=== PATIENT | female | born 1980 ===

== ENCOUNTER 2021-06-13 11:50 | Inpatient (IN) | payer SELFPAY ==
[2021-06-13] MEDS ORDERED: ACETAMINOPHEN 325 MG TAB PO ONE (12:21)
[2021-06-13] MEDS ORDERED: IBUPROFEN 600 MG TAB PO ONE (12:21)
--- NOTE | 2021-06-13 12:24 | Event Note ---
ED Screening Note Date of service: 06/13/21 Time: 12:20 ED Screening Note: Patient Lithuanian-speaking. 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 Patient complains of generalized body aches, cough, shortness of breath, chest pain, and subjective fevers as well as other URI symptoms for about 1 week. She states that she has been around other family members have been sick but she is not exactly sure what they had. She denies any known COVID-19 contacts. She did not get a Covid test and she has been sick. She also has not gotten a COVID-19 vaccine. Other than history of hypertension she denies any other significant past medical history. This initial assessment/diagnostic orders/clinical plan/treatment(s) is/are subj ect to change based on patients health status, clinical progression and re- assessment by fellow clinical providers in the ED. Further treatment and workup at subsequent clinical providers discretion. Patient/guardian urged not to elope from the ED as their condition may be serious if not clinically assessed and managed. Initial orders include: labs/cxr
--- NOTE | 2021-06-13 13:10 | XRay Report ---
CHEST 2 VIEWS INDICATION / CLINICAL INFORMATION: cough/sob. COMPARISON: None available. FINDINGS: SUPPORT DEVICES: None. HEART / MEDIASTINUM: No significant abnormality. LUNGS / PLEURA: There are moderate patchy bilateral opacities. ADDITIONAL FINDINGS: No significant additional findings. IMPRESSION: 1. Moderate patchy bilateral pulmonary opacities likely indicating viral pneumonia. Signer Name: Ronal Lester MD Signed: 06/13/2021 1:06 PM Workstation Name: [id number]
[2021-06-13 14:13] LABS: Basophils # (Auto) 0.1 K/mm3 (0.0-0.1); Basophils % (Auto) 1.6 % (0.0-1.8); Eosinophils % (Auto) 0.1 % (0.0-4.3); Hematocrit 39.5 % (30.3-42.9); Hemoglobin 13.6 gm/dl (10.1-14.3); Lymphocytes # (Auto) 0.5 K/mm3 (1.2-5.4); Lymphocytes % (Auto) 13.1 % (13.4-35.0); Mean Corpuscular HGB Conc 35 % (30-34); Mean Corpuscular Volume 90 fl (79-97); Monocytes # (Auto) 0.3 K/mm3 (0.0-0.8); Monocytes % (Auto) 7.5 % (0.0-7.3); Platelet Count 116 K/mm3 (140-440); Red Cell Distribution Width 13.6 % (13.2-15.2)
[2021-06-13 14:37] LABS: Alanine Aminotransferase 27 units/L (7-56); Albumin 3.5 g/dL (3.9-5); Blood Urea Nitrogen 9 mg/dL (7-17); Hemolysis Index 5
[2021-06-13 14:39] LABS: BUN/Creatinine Ratio 13
[2021-06-13 16:08] LABS: C-Reactive Protein 5.2 mg/dL (0.00-1.30)
--- NOTE | 2021-06-14 04:42 | Emergency Department Report ---
ED Shortness of Breath HPI - General Chief Complaint: Weakness Stated Complaint: CHAEST PAIN/BACK PAIN Time Seen by Provider: 06/14/21 04:26 Source: patient Mode of arrival: Ambulatory Limitations: Language Barrier - History of Present Illness Initial Comments: Patient is a 41-year-old female that presents emergency room with complaints of chest pain, shortness of breath, cough, fever. Patient states her symptoms started 9 days ago. Patient dates her symptoms are worsening. Patient states she is taking Tylenol for the fever. Patient states the chest pain is better with rest and worse with palpation and movement. Patient states that shortness of br eath better with rest and worse with exertion. Patient states she has not been vaccinated against COVID-19. Patient states she has not been tested for COVID- 19. Patient complains of cough. Patient states her cough is dry. Patient denies diarrhea. Patient denies loss of smell. MD Complaint: shortness of breath, cough, chest pain -: Sudden - Related Data Allergies Allergy/AdvReac Type Severity Reaction Status Date / Time No Known Allergies Allergy Unverified 06/13/21 12:19 ED Review of Systems ROS: Stated complaint: CHAEST PAIN/BACK PAIN Other details as noted in HPI Constitutional: chills, fever, malaise Eyes: denies: eye pain, eye discharge, vision change ENT: denies: ear pain, throat pain Respiratory: see HPI, cough, shortness of breath. denies: wheezing Cardiovascular: as per HPI, chest pain. denies: palpitations Endocrine: no symptoms reported Gastrointestinal: denies: abdominal pain, nausea, diarrhea Genitourinary: denies: urgency, dysuria, discharge Musculoskeletal: denies: back pain, joint swelling, arthralgia Skin: denies: rash, lesions Neurological: denies: headache, weakness, paresthesias Psychiatric: denies: anxiety, depression Hematological/Lymphatic: denies: easy bleeding, easy bruising ED Past Medical Hx - Past Medical History Previous Medical History?: No - Surgical History Past Surgical History?: No - Family History Family history: no significant - Social History Smoking Status: Never Smoker Substance Use Type: None ED Physical Exam - General Limitations: Language Barrier General appearance: alert, in distress - Head Head exam: Present: atraumatic, normocephalic - Eye Eye exam: Present: normal appearance - ENT ENT exam: Present: mucous membranes moist - Neck Neck exam: Present: normal inspection - Respiratory Respiratory exam: Present: respiratory distress, chest wall tenderness, decreased breath sounds - Cardiovascular Cardiovascular Exam: Present: regular rate, normal rhythm, normal heart sounds. Absent: systolic murmur, diastolic murmur, rubs, gallop - GI/Abdominal GI/Abdominal exam: Present: soft, normal bowel sounds - Extremities Exam Extremities exam: Present: normal inspection - Back Exam Back exam: Present: normal inspection - Neurological Exam Neurological exam: Present: alert, oriented X3 - Psychiatric Psychiatric exam: Present: normal affect, normal mood - Skin Skin exam: Present: warm, dry, intact, normal color. Absent: rash ED Course Vital Signs 06/13/21 06/13/21 06/13/21 12:06 13:29 19:06 Temperature 100.5 F H 98.2 F Pulse Rate 102 H 80 Respiratory 20 22 22 Rate Blood Pressure 105/68 Blood Pressure 116/73 [Right] O2 Sat by Pulse 86 95 Oximetry 06/14/21 06/14/21 06/14/21 00:45 04:41 05:27 Temperature 99.2 F 101.1 F H Pulse Rate 93 H 98 H Respiratory 16 22 22 Rate Blood Pressure 145/81 Blood Pressure 127/77 [Right] O2 Sat by Pulse 88 87 Oximetry 06/14/21 05:28 Temperature Pulse Rate Respiratory 20 Rate Blood Pressure Blood Pressure [Right] O2 Sat by Pulse 89 Oximetry - Reevaluation(s) Reevaluation #1: Patient was on 4 L of oxygen while in the waiting room however the patient is now requiring more. Patient will be placed on high flow O2. I discussed all results with patient. I discussed plan of care with patient. Patient agrees with plan of care and admission. Patient to be admitted to the hospitalist service. 06/14/21 04:47 Reevaluation #2: Patient on high flow and the patient's oxygen has improved. 06/14/21 05:31 - Consultations Consultation #1: Hospitalist consulted for admission. Hospitalist to admit patient. 06/14/21 04:47 ED Medical Decision Making - Lab Data Result diagrams: 06/13/21 13:45 06/13/21 15:35 - Radiology Data Radiology results: report reviewed, image reviewed interpreted by me: Chest x-ray: Bilateral pneumonia, no pneumothorax, no foreign body, no osseous findings, CHEST 2 VIEWS INDICATION / CLINICAL INFORMATION: cough/sob. COMPARISON: None available. FINDINGS: SUPPORT DEVICES: None. HEART / MEDIASTINUM: No significant abnormality. LUNGS / PLEURA: There are moderate patchy bilateral opacities. ADDITIONAL FINDINGS: No significant additional findings. IMPRESSION: 1. Moderate patchy bilateral pulmonary opacities likely indicating viral pneumonia. - Medical Decision Making Patient is a 41-year-old female presents emergency room with complaints of chest pain, shortness of breath, cough, fever, Covid-like symptoms. Patient is PUI. Patient is not been vaccinated for COVID-19. On chest x-ray, the patient found to have bilateral pneumonia of appears to be a viral origin. I personally reviewed the chest x-ray. Patient was given Rocephin, Zithromax and Decadron after initial evaluation. Patient has required oxygen support since been in the ER. Patient is 88% on room air and the patient improved with oxygen via nasal cannula. Patient has respiratory failure with hypoxia. Patient had labs done which were essentially unremarkable save for elevated Covid markers. Patient a dmitted to the hospital service for further evaluation and treatment. Critical care time documented due to the multiple reassessments, prolonged time at the bedside, interpretation of diagnostics and labs. - Differential Diagnosis Fever, Covid, PUI, pneumonia, hypoxia, chest pain, shortness of breath Critical Care Time: Yes Critical care time in (mins) excluding proc time.: 35 Critical care attestation.: If time is entered above; I have spent that time in minutes in the direct care of this critically ill patient, excluding procedure time. Critical Care Time: 35 minutes ED Disposition Clinical Impression: SOB (shortness of breath), Person under investigation for COVID-19, Cough Fever Qualifiers: Fever type: unspecified Qualified Code(s): R50.9 - Fever, unspecified Respiratory failure Qualifiers: Chronicity: acute Respiratory failure complication: hypoxia Qualified Code(s): J96.01 - Acute respiratory failure with hypoxia Disposition: 09 ADMITTED INPATIENT Is pt being admited?: Yes Does the pt Need Aspirin: No Condition: Critical Time of Disposition: 04:49
[2021-06-14] MEDS ORDERED: cefTRIAXone/NS 2 GM/100 ML 2 GM/100 ML BAG IV ONE (04:43)
[2021-06-14] MEDS ORDERED: dexAMETHasone 4 MG/ML VIAL IV ONE (04:43)
[2021-06-14] MEDS ORDERED: AZITHROMYCIN/NS 500 MG/250 ML 500 MG/250 ML BAG IV ONE (04:43)
[2021-06-14] MEDS ORDERED: ACETAMINOPHEN 500 MG TAB PO ONE (04:47)
--- NOTE | 2021-06-14 09:11 | History and Physical Report ---
History of Present Illness Date of examination: 06/14/21 Date of admission: 06/14/21 04:50 Chief complaint: sob History of present illness: 41-year-old female with no significant past medical history presented through the emergency department with complaints of shortness of breath, cough and fever. Patient reported that symptoms began approximately 9 days ago and have progressively worsened. Patient reports dyspnea at rest and exacerbated with exertion. Patient states she has not been vaccinated against COVID-19. Patient states she has not been tested for COVID-19. Past History Past Medical History: No medical history Past Surgical History: No surgical history Social history: no significant social history Family history: no significant family history Medications and Allergies Allergies Allergy/AdvReac Type Severity Reaction Status Date / Time No Known Allergies Allergy Unverified 06/13/21 12:19 Review of Systems All systems: negative Exam - Constitutional Vitals: Temp Pulse Resp BP Pulse Ox 98.9 F 82 23 100/60 95 06/14/21 07:30 06/14/21 08:16 06/14/21 08:16 06/14/21 08:16 06/14/21 08:16 General appearance: Present: no acute distress, well-nourished - EENT Eyes: Present: PERRL ENT: hearing intact, clear oral mucosa - Neck Neck: Present: supple, normal ROM - Respiratory Respiratory effort: normal Respiratory: bilateral: diminished, rhonchi - Cardiovascular Heart Sounds: Present: S1 & S2. Absent: rub, click - Extremities Extremities: pulses symmetrical, No edema Peripheral Pulses: within normal limits - Abdominal General gastrointestinal: Present: soft, non-tender, non-distended, normal bowel sounds Female genitourinary: Present: normal - Integumentary Integumentary: Present: clear, warm, dry - Musculoskeletal Musculoskeletal: gait normal, strength equal bilaterally - Psychiatric Psychiatric: appropriate mood/affect, intact judgment & insight - Neurologic Neurologic: CNII-XII intact, moves all extremities Results - Labs CBC & Chem 7: 06/13/21 13:45 06/13/21 15:35 Labs: Laboratory Last Values WBC 3.7 K/mm3 (4.5-11.0) L 06/13/21 13:45 RBC 4.40 M/mm3 (3.65-5.03) 06/13/21 13:45 Hgb 13.6 gm/dl (10.1-14.3) 06/13/21 13:45 Hct 39.5 % (30.3-42.9) 06/13/21 13:45 MCV 90 fl (79-97) 06/13/21 13:45 MCH 31 pg (28-32) 06/13/21 13:45 MCHC 35 % (30-34) H 06/13/21 13:45 RDW 13.6 % (13.2-15.2) 06/13/21 13:45 Plt Count 116 K/mm3 (140-440) L 06/13/21 13:45 Lymph % (Auto) 13.1 % (13.4-35.0) L 06/13/21 13:45 [place] % (Auto) 7.5 % (0.0-7.3) H 06/13/21 13:45 Eos % (Auto) 0.1 % (0.0-4.3) 06/13/21 13:45 Baso % (Auto) 1.6 % (0.0-1.8) 06/13/21 13:45 Lymph # (Auto) 0.5 K/mm3 (1.2-5.4) L 06/13/21 13:45 [place] # (Auto) 0.3 K/mm3 (0.0-0.8) 06/13/21 13:45 Eos # (Auto) 0.0 K/mm3 (0.0-0.4) 06/13/21 13:45 Baso # (Auto) 0.1 K/mm3 (0.0-0.1) 06/13/21 13:45 Seg Neutrophils % 77.7 % (40.0-70.0) H 06/13/21 13:45 Seg Neutrophils # 2.9 K/mm3 (1.8-7.7) 06/13/21 13:45 D-Dimer 637.63 ng/mlDDU (0-234) H 06/13/21 15:35 Sodium 132 mmol/L (137-145) L 06/13/21 13:45 Potassium 3.6 mmol/L (3.6-5.0) 06/13/21 13:45 Chloride 98.9 mmol/L (98-107) 06/13/21 13:45 Carbon Dioxide 20 mmol/L (22-30) L 06/13/21 13:45 Anion Gap 17 mmol/L 06/13/21 13:45 BUN 9 mg/dL (7-17) 06/13/21 13:45 Creatinine 0.7 mg/dL (0.6-1.2) 06/13/21 13:45 Estimated GFR > 60 ml/min 06/13/21 13:45 BUN/Creatinine Ratio 13 % 06/13/21 13:45 Glucose 113 mg/dL (65-100) H 06/13/21 15:35 Calcium 8.0 mg/dL (8.4-10.2) L 06/13/21 13:45 Ferritin 625.5 ng/mL (10.0-200.0) H 06/13/21 15:35 Total Bilirubin 0.40 mg/dL (0.1-1.2) 06/13/21 13:45 AST 39 units/L (5-40) 06/13/21 13:45 ALT 27 units/L (7-56) 06/13/21 13:45 Alkaline Phosphatase 57 units/L (35-129) 06/13/21 13:45 Lactate Dehydrogenase 467 units/L (91-180) H 06/13/21 15:35 C-Reactive Protein 5.20 mg/dL (0.00-1.30) H 06/13/21 15:35 Total Protein 7.1 g/dL (6.3-8.2) 06/13/21 13:45 Albumin 3.5 g/dL (3.9-5) L 06/13/21 13:45 Albumin/Globulin Ratio 1.0 % 06/13/21 13:45 Microbiology: Microbiology 06/13/21 15:35 Peripheral/Venous Blood Culture - Preliminary Culture in Progress 06/13/21 15:35 Peripheral/Venous Blood Culture - Preliminary Culture in Progress Assessment and Plan Assessment and plan: Acute hypoxic respiratory failure. Suspected COVID-19 pneumonia. Bilateral pneumonia Sepsis. Patient meets criteria given the fever, tachycardia, leukopenia and diagnosis of pneumonia. 06/14/2021. The patient will be admitted to medical floor and started on empiric IV antibiotics. Chest x-ray reveals moderate patchy bilateral pulmonary opacities likely indicating viral pneumonia. Follow-up Covid PCR testing. The patient does have elevated inflammatory markers of D-dimer at 637, ferritin 625, LDH 467 and CRP of 5.2. Check procalcitonin levels. Consider ID and pulmonary consultations.
[2021-06-14] MEDS ORDERED: ONDANSETRON 4 MG/2 ML INJ IV PRN (09:13)
[2021-06-14] MEDS ORDERED: MORPHINE 4 MG/1 ML INJ IV PRN (09:13)
[2021-06-14] MEDS ORDERED: HYDROcodone/ACETAMINOPHEN 5-325 MG TAB PO PRN (09:13)
[2021-06-14] MEDS ORDERED: ACETAMINOPHEN 325 MG TAB PO PRN (09:13)
[2021-06-14] MEDS: cefTRIAXone/NS 2 GM/100 ML 2 GM/100 ML BAG IV SCH (10:39)
[2021-06-14] MEDS: ENOXAPARIN 40 MG/0.4 ML INJ SUB-Q SCH (10:41)
[2021-06-14 10:56] LABS: C-Reactive Protein 6.8 mg/dL (0.00-1.30)
[2021-06-14] MEDS: MORPHINE 2 MG/1 ML INJ IV PRN ×2 (12:16→23:13)
[2021-06-14] MEDS: AZITHROMYCIN/NS 500 MG/250 ML 500 MG/250 ML BAG IV SCH (12:16)
[2021-06-15 06:08] LABS: Basophils % (Auto) 0.2 % (0.0-1.8); Hemoglobin 13.2 gm/dl (10.1-14.3); Lymphocytes # (Auto) 0.6 K/mm3 (1.2-5.4); Mean Corpuscular HGB Conc 34 % (30-34); Mean Corpuscular Volume 92 fl (79-97); Monocytes # (Auto) 0.4 K/mm3 (0.0-0.8); Monocytes % (Auto) 5.9 % (0.0-7.3); Platelet Count 142 K/mm3 (140-440); Red Blood Count 4.23 M/mm3 (3.65-5.03); Red Cell Distribution Width 13.4 % (13.2-15.2)
[2021-06-15 07:39] LABS: Blood Urea Nitrogen 11 mg/dL (7-17); Calcium 8.4 mg/dL (8.4-10.2); Hemolysis Index 3
[2021-06-15 07:44] LABS: BUN/Creatinine Ratio 22
--- NOTE | 2021-06-15 08:17 | Progress Note ---
Assessment and Plan Assessment and plan: Acute hypoxic respiratory failure. Suspected COVID-19 pneumonia. Bilateral pneumonia Sepsis. Patient meets criteria given the fever, tachycardia, leukopenia and diagnosis of pneumonia. 06/14/2021. The patient will be admitted to medical floor and started on empiric IV antibiotics. Chest x-ray reveals moderate patchy bilateral pulmonary opacities likely indicating viral pneumonia. Follow-up Covid PCR testing. The patient does have elevated inflammatory markers of D-dimer at 637, ferritin 625, LDH 467 and CRP of 5.2. Check procalcitonin levels. Consider ID and pulmonary consultations. 06/15/2021. Covid PCR testing positive on 06/13. Continue dexamethasone IV for total of 10 days. Continue to trend inflammatory markers. Continue empiric IV antibiotics for now. ID consultation pending. Prone positioning as possible History Interval history: No new issues overnight. Hospitalist Physical - Constitutional Vitals: Temp Pulse Resp BP Pulse Ox 97.9 F 63 23 109/66 95 06/14/21 23:13 06/15/21 06:00 06/15/21 06:00 06/15/21 06:00 06/15/21 06:00 General appearance: Present: no acute distress, well-nourished - EENT Eyes: Present: PERRL, EOM intact ENT: hearing intact, clear oral mucosa, dentition normal - Neck Neck: Present: supple, normal ROM - Respiratory Respiratory effort: normal Respiratory: bilateral: CTA - Cardiovascular Rhythm: regular Heart Sounds: Present: S1 & S2. Absent: gallop, rub - Extremities Extremities: no ischemia, No edema, Full ROM - Abdominal General gastrointestinal: soft, non-tender, non-distended, normal bowel sounds - Integumentary Integumentary: Present: clear, warm, dry - Neurologic Neurologic: CNII-XII intact, moves all extremities Results - Labs CBC & Chem 7: 06/15/21 05:44 06/15/21 05:44 Labs: Laboratory Last Values WBC 6.9 K/mm3 (4.5-11.0) 06/15/21 05:44 RBC 4.23 M/mm3 (3.65-5.03) 06/15/21 05:44 Hgb 13.2 gm/dl (10.1-14.3) 06/15/21 05:44 Hct 39.0 % (30.3-42.9) 06/15/21 05:44 MCV 92 fl (79-97) 06/15/21 05:44 MCH 31 pg (28-32) 06/15/21 05:44 MCHC 34 % (30-34) 06/15/21 05:44 RDW 13.4 % (13.2-15.2) 06/15/21 05:44 Plt Count 142 K/mm3 (140-440) 06/15/21 05:44 Lymph % (Auto) 9.0 % (13.4-35.0) L 06/15/21 05:44 [place] % (Auto) 5.9 % (0.0-7.3) 06/15/21 05:44 Eos % (Auto) 0.0 % (0.0-4.3) 06/15/21 05:44 Baso % (Auto) 0.2 % (0.0-1.8) 06/15/21 05:44 Lymph # (Auto) 0.6 K/mm3 (1.2-5.4) L 06/15/21 05:44 [place] # (Auto) 0.4 K/mm3 (0.0-0.8) 06/15/21 05:44 Eos # (Auto) 0.0 K/mm3 (0.0-0.4) 06/15/21 05:44 Baso # (Auto) 0.0 K/mm3 (0.0-0.1) 06/15/21 05:44 Seg Neutrophils % 84.9 % (40.0-70.0) H 06/15/21 05:44 Seg Neutrophils # 5.8 K/mm3 (1.8-7.7) 06/15/21 05:44 D-Dimer 605.31 ng/mlDDU (0-234) H 06/14/21 10:06 Sodium 141 mmol/L (137-145) D 06/15/21 05:44 Potassium 3.9 mmol/L (3.6-5.0) 06/15/21 05:44 Chloride 102.9 mmol/L (98-107) 06/15/21 05:44 Carbon Dioxide 28 mmol/L (22-30) D 06/15/21 05:44 Anion Gap 14 mmol/L 06/15/21 05:44 BUN 11 mg/dL (7-17) 06/15/21 05:44 Creatinine 0.5 mg/dL (0.6-1.2) L 06/15/21 05:44 Estimated GFR > 60 ml/min 06/15/21 05:44 BUN/Creatinine Ratio 22 % 06/15/21 05:44 Glucose 126 mg/dL (65-100) H 06/15/21 05:44 POC Glucose 137 mg/dL (70-105) H 06/14/21 20:34 Calcium 8.4 mg/dL (8.4-10.2) 06/15/21 05:44 Ferritin 630.6 ng/mL (10.0-200.0) H 06/14/21 10:06 Total Bilirubin 0.40 mg/dL (0.1-1.2) 06/13/21 13:45 AST 39 units/L (5-40) 06/13/21 13:45 ALT 27 units/L (7-56) 06/13/21 13:45 Alkaline Phosphatase 57 units/L (35-129) 06/13/21 13:45 Lactate Dehydrogenase 439 units/L (91-180) H 06/14/21 10:06 C-Reactive Protein 6.80 mg/dL (0.00-1.30) H 06/14/21 10:06 Total Protein 7.1 g/dL (6.3-8.2) 06/13/21 13:45 Albumin 3.5 g/dL (3.9-5) L 06/13/21 13:45 Albumin/Globulin Ratio 1.0 % 06/13/21 13:45 Procalcitonin < 0.05 ng/mL (<0.15) 06/14/21 10:06 Coronavirus (PCR) Positive (Negative) A 06/13/21 Unknown Microbiology: Microbiology 06/13/21 15:35 Peripheral/Venous Blood Culture - Preliminary NO GROWTH AFTER 24 HOURS 06/13/21 15:35 Peripheral/Venous Blood Culture - Preliminary NO GROWTH AFTER 24 HOURS Active Medications - Current Medications Current Medications: Generic Name Dose Route Start Last Admin Trade Name Freq PRN Reason Stop Dose Admin Acetaminophen 650 mg 06/14/21 09:13 Acetaminophen 325 Mg Tab PO Q4H PRN Pain MILD(1-3)/Fever >100.5/NAPIER Hydrocodone Bitart/Acetaminophen 2 each 06/14/21 09:13 Hydrocodone/Acetaminophen 5-325 Mg Tab PO Q6H PRN Pain, Moderate (4-6) Enoxaparin Sodium 40 mg 06/14/21 10:00 06/14/21 10:41 Enoxaparin 40 Mg/0.4 Ml Inj SUB-Q 40 mg QDAY DARVIN Administration Ceftriaxone Sodium 2 gm in 100 mls @ 200 mls/hr 06/14/21 08:00 06/14/21 10:39 Rocephin/Ns 2 Gm/100 Ml IV 06/17/21 08:29 200 mls/hr Q24H DARVIN Administration Protocol Azithromycin 500 mg in 250 mls @ 250 mls/hr 06/14/21 08:00 06/14/21 12:16 Zithromax/Ns IV 06/17/21 08:59 250 mls/hr Q24H DARVIN Administration Protocol Morphine Sulfate 1 mg 06/14/21 09:39 06/14/21 23:13 Morphine 2 Mg/1 Ml Inj IV 1 mg Q4H PRN Administration Pain , Severe (7-10) Ondansetron HCl 4 mg 06/14/21 09:13 06/14/21 12:17 Ondansetron 4 Mg/2 Ml Inj IV 4 mg Q8H PRN Administration Nausea And Vomiting Sodium Chloride 10 ml 06/14/21 10:00 06/14/21 22:50 Sodium Chloride 0.9% 10 Ml Flush Syringe IV 10 ml BID DARVIN Administration Sodium Chloride 10 ml 06/14/21 09:13 Sodium Chloride 0.9% 10 Ml Flush Syringe IV PRN PRN LINE FLUSH
[2021-06-15] MEDS: cefTRIAXone/NS 2 GM/100 ML 2 GM/100 ML BAG IV SCH (08:59)
[2021-06-15] MEDS: dexAMETHasone 4 MG/ML VIAL IV SCH (10:00)
[2021-06-15] MEDS: AZITHROMYCIN/NS 500 MG/250 ML 500 MG/250 ML BAG IV SCH (11:00)
[2021-06-15] MEDS: ENOXAPARIN 40 MG/0.4 ML INJ SUB-Q SCH (11:43)
--- NOTE | 2021-06-15 11:56 | Consultation ---
History of Present Illness - Reason for Consult Consult date: 06/15/21 COVID Requesting physician: ANTONIO XIAO - History of Present Illness The patient is a 41-year-old female with no significant past medical history admitted as COVID-19 PUI. Unvaccinated. Labs showed leukopenia, D-dimer 605, CRP 6.8, LDH 439, ferritin 630. COVID-19 PCR is positive. Febrile, hypoxic requiring BiPAP. Review of Systems: reviewed in the chart, unable to obtain, minimize risk of transmission Past History Past Medical History: No medical history Past Surgical History: No surgical history Social history: no significant social history Family history: no significant family history Medications and Allergies Allergies Allergy/AdvReac Type Severity Reaction Status Date / Time No Known Allergies Allergy Unverified 06/13/21 12:19 Active Meds: Active Medications Acetaminophen (Acetaminophen 325 Mg Tab) 650 mg PO Q4H PRN PRN Reason: Pain MILD(1-3)/Fever >100.5/NAPIER Hydrocodone Bitart/Acetaminophen (Hydrocodone/Acetaminophen 5-325 Mg Tab) 2 each PO Q6H PRN PRN Reason: Pain, Moderate (4-6) Azithromycin (Azithromycin 250 Mg Tab) 500 mg PO QDAY [facility] Stop: 06/17/21 10:01 Dexamethasone (Dexamethasone 4 Mg/Ml Vial) 8 mg IV DAILY [facility] Stop: 06/24/21 10:01 Last Admin: 06/15/21 10:00 Dose: 8 mg Documented by: Enoxaparin Sodium (Enoxaparin 40 Mg/0.4 Ml Inj) 40 mg SUB-Q QDAY [facility] Last Admin: 06/15/21 11:43 Dose: 40 mg Documented by: Ceftriaxone Sodium (Rocephin/Ns 2 Gm/100 Ml) 2 gm in 100 mls @ 200 mls/hr IV Q24H [facility]; Protocol Stop: 06/17/21 08:29 Last Admin: 06/15/21 08:59 Dose: 200 mls/hr Documented by: Azithromycin (Zithromax/Ns) 500 mg in 250 mls @ 250 mls/hr IV Q24H DARVIN; Protocol Stop: 06/15/21 23:59 Last Admin: 06/14/21 12:16 Dose: 250 mls/hr Documented by: Morphine Sulfate (Morphine 2 Mg/1 Ml Inj) 1 mg IV Q4H PRN PRN Reason: Pain , Severe (7-10) Last Admin: 06/14/21 23:13 Dose: 1 mg Documented by: Ondansetron HCl (Ondansetron 4 Mg/2 Ml Inj) 4 mg IV Q8H PRN PRN Reason: Nausea And Vomiting Last Admin: 06/14/21 12:17 Dose: 4 mg Documented by: Sodium Chloride (Sodium Chloride 0.9% 10 Ml Flush Syringe) 10 ml IV BID DARVIN Last Admin: 06/15/21 11:45 Dose: 10 ml Documented by: Sodium Chloride (Sodium Chloride 0.9% 10 Ml Flush Syringe) 10 ml IV PRN PRN PRN Reason: LINE FLUSH Physical Examination - Physical Exam Narrative exam: Physical Exam (reviewed in chart to minimize risk of transmission) Constitutional: deferred Head, Ears, Nose: deferred Eyes: deferred Neck: deferred Oral: deferred Cardiovascular: deferred Respiratory: deferred GI: deferred Musculoskeletal: deferred Skin: deferred Hem/Lymphatic: deferred Psych: deferred Neurological: deferred - Constitutional Vitals: Vital Signs Temp Pulse Resp BP Pulse Ox 97.9 F 83 18 111/63 92 06/14/21 23:13 06/15/21 10:00 06/15/21 10:00 06/15/21 10:00 06/15/21 10:00 Temperature -Last 24 Hours Temperature 97.9 F Results - Labs CBC & Chem 7: 06/15/21 05:44 06/15/21 05:44 Labs: Abnormal lab results 06/13/21 06/14/21 06/15/21 Range/Units Unknown 20:34 05:44 Lymph % (Auto) 9.0 L (13.4-35.0) % Lymph # (Auto) 0.6 L (1.2-5.4) K/mm3 Seg Neutrophils % 84.9 H (40.0-70.0) % Creatinine (0.6-1.2) mg/dL Glucose (65-100) mg/dL POC Glucose 137 H (70-105) mg/dL Coronavirus (PCR) Positive A (Negative) 06/15/21 Range/Units 05:44 Lymph % (Auto) (13.4-35.0) % Lymph # (Auto) (1.2-5.4) K/mm3 Seg Neutrophils % (40.0-70.0) % Creatinine 0.5 L (0.6-1.2) mg/dL Glucose 126 H (65-100) mg/dL POC Glucose (70-105) mg/dL Coronavirus (PCR) (Negative) - Imaging and Cardiology Chest x-ray: report reviewed, image reviewed (pna) Assessment and Plan Cultures: SARS CoV2 PCR: Positive Blood culture: No growth A/P: 41-year-old female with: #Bilateral pneumonia: Secondary to COVID-19. Unvaccinated #Acute hypoxic respiratory failure: Requiring BiPAP #Obesity Recs: IV/PO Dexamethasone 8 mg daily x 10 days, higher dose due to morbid obesity Remdesivir ordered Procalcitonin low, antibiotics discontinued Does not meet CRP criteria for Actemra prophylactic anticoagulation based on d-dimer per hospital protocol trend ferritin, LDH, d-dimer, CRP every 2-3 days for risk stratification and to assess disease progression Yoni Main MD, FACP [facility] O: [phone] F: [phone]
[2021-06-15 13:30] LABS: Alanine Aminotransferase 32 units/L (7-56); Albumin 2.9 g/dL (3.9-5); Blood Urea Nitrogen 11 mg/dL (7-17); Calcium 7.7 mg/dL (8.4-10.2); Hemolysis Index 8
[2021-06-15 13:36] LABS: BUN/Creatinine Ratio 22
[2021-06-15] MEDS ORDERED: REMDESIVIR 200 MG in SODIUM CHLORIDE 0.9% 250ML 250 ML IV ONE (14:00)
[2021-06-15] MEDS: SODIUM CHLORIDE 0.9% 50 ML IVPB IV SCH (18:00)
--- NOTE | 2021-06-16 08:52 | Progress Note ---
Assessment and Plan Assessment and plan: Acute hypoxic respiratory failure. Suspected COVID-19 pneumonia. Bilateral pneumonia Sepsis. Patient meets criteria given the fever, tachycardia, leukopenia and diagnosis of pneumonia. 06/14/2021. The patient will be admitted to medical floor and started on empiric IV antibiotics. Chest x-ray reveals moderate patchy bilateral pulmonary opacities likely indicating viral pneumonia. Follow-up Covid PCR testing. The patient does have elevated inflammatory markers of D-dimer at 637, ferritin 625, LDH 467 and CRP of 5.2. Check procalcitonin levels. Consider ID and pulmonary consultations. 06/15/2021. Covid PCR testing positive on 06/13. Continue dexamethasone IV for total of 10 days. Continue to trend inflammatory markers. Continue empiric IV antibiotics for now. ID consultation pending. Prone positioning as possible 06/16/2021. Patient currently on 5 L O2, continue to wean oxygen as tolerated. Continue dexamethasone and remdesivir. Procalcitonin level was low thus antibiotics discontinued. Patient does not meet CRP criteria for Actemra. Continue to trend inflammatory markers of ferritin, LDH, D-dimer and CRP. Prone positioning as possible. History Interval history: No new issues overnight. Hospitalist Physical - Constitutional Vitals: Temp Pulse Resp BP Pulse Ox 100 F H 60 16 139/85 91 06/15/21 20:36 06/16/21 05:30 06/16/21 05:30 06/16/21 05:30 06/16/21 05:30 General appearance: Present: no acute distress, well-nourished - EENT Eyes: Present: PERRL, EOM intact ENT: hearing intact, clear oral mucosa, dentition normal - Neck Neck: Present: supple, normal ROM - Respiratory Respiratory effort: normal Respiratory: bilateral: CTA - Cardiovascular Rhythm: regular Heart Sounds: Present: S1 & S2. Absent: gallop, rub - Extremities Extremities: no ischemia, No edema, Full ROM - Abdominal General gastrointestinal: soft, non-tender, non-distended, normal bowel sounds - Integumentary Integumentary: Present: clear, warm, dry - Neurologic Neurologic: CNII-XII intact, moves all extremities Results - Labs CBC & Chem 7: 06/15/21 05:44 06/15/21 12:51 Labs: Laboratory Last Values WBC 6.9 K/mm3 (4.5-11.0) 06/15/21 05:44 RBC 4.23 M/mm3 (3.65-5.03) 06/15/21 05:44 Hgb 13.2 gm/dl (10.1-14.3) 06/15/21 05:44 Hct 39.0 % (30.3-42.9) 06/15/21 05:44 MCV 92 fl (79-97) 06/15/21 05:44 MCH 31 pg (28-32) 06/15/21 05:44 MCHC 34 % (30-34) 06/15/21 05:44 RDW 13.4 % (13.2-15.2) 06/15/21 05:44 Plt Count 142 K/mm3 (140-440) 06/15/21 05:44 Lymph % (Auto) 9.0 % (13.4-35.0) L 06/15/21 05:44 [place] % (Auto) 5.9 % (0.0-7.3) 06/15/21 05:44 Eos % (Auto) 0.0 % (0.0-4.3) 06/15/21 05:44 Baso % (Auto) 0.2 % (0.0-1.8) 06/15/21 05:44 Lymph # (Auto) 0.6 K/mm3 (1.2-5.4) L 06/15/21 05:44 [place] # (Auto) 0.4 K/mm3 (0.0-0.8) 06/15/21 05:44 Eos # (Auto) 0.0 K/mm3 (0.0-0.4) 06/15/21 05:44 Baso # (Auto) 0.0 K/mm3 (0.0-0.1) 06/15/21 05:44 Seg Neutrophils % 84.9 % (40.0-70.0) H 06/15/21 05:44 Seg Neutrophils # 5.8 K/mm3 (1.8-7.7) 06/15/21 05:44 D-Dimer 605.31 ng/mlDDU (0-234) H 06/14/21 10:06 Sodium 137 mmol/L (137-145) 06/15/21 12:51 Potassium 3.5 mmol/L (3.6-5.0) L 06/15/21 12:51 Chloride 104.6 mmol/L (98-107) 06/15/21 12:51 Carbon Dioxide 23 mmol/L (22-30) 06/15/21 12:51 Anion Gap 13 mmol/L 06/15/21 12:51 BUN 11 mg/dL (7-17) 06/15/21 12:51 Creatinine 0.5 mg/dL (0.6-1.2) L 06/15/21 12:51 Estimated GFR > 60 ml/min 06/15/21 12:51 BUN/Creatinine Ratio 22 % 06/15/21 12:51 Glucose 141 mg/dL (65-100) H 06/15/21 12:51 POC Glucose 137 mg/dL (70-105) H 06/14/21 20:34 Calcium 7.7 mg/dL (8.4-10.2) L 06/15/21 12:51 Ferritin 630.6 ng/mL (10.0-200.0) H 06/14/21 10:06 Total Bilirubin 0.30 mg/dL (0.1-1.2) 06/15/21 12:51 AST 34 units/L (5-40) 06/15/21 12:51 ALT 32 units/L (7-56) 06/15/21 12:51 Alkaline Phosphatase 54 units/L (35-129) 06/15/21 12:51 Lactate Dehydrogenase 439 units/L (91-180) H 06/14/21 10:06 C-Reactive Protein 6.80 mg/dL (0.00-1.30) H 06/14/21 10:06 Total Protein 6.3 g/dL (6.3-8.2) 06/15/21 12:51 Albumin 2.9 g/dL (3.9-5) L 06/15/21 12:51 Albumin/Globulin Ratio 0.9 % 06/15/21 12:51 Procalcitonin < 0.05 ng/mL (<0.15) 06/14/21 10:06 Coronavirus (PCR) Positive (Negative) A 06/13/21 Unknown Microbiology: Microbiology 06/13/21 15:35 Peripheral/Venous Blood Culture - Preliminary NO GROWTH AFTER 48 HOURS 06/13/21 15:35 Peripheral/Venous Blood Culture - Preliminary NO GROWTH AFTER 48 HOURS Active Medications - Current Medications Current Medications: Generic Name Dose Route Start Last Admin Trade Name Freq PRN Reason Stop Dose Admin Acetaminophen 650 mg 06/14/21 09:13 Acetaminophen 325 Mg Tab PO Q4H PRN Pain MILD(1-3)/Fever >100.5/NAPIER Hydrocodone Bitart/Acetaminophen 2 each 06/14/21 09:13 Hydrocodone/Acetaminophen 5-325 Mg Tab PO Q6H PRN Pain, Moderate (4-6) Azithromycin 500 mg 06/16/21 10:00 Azithromycin 250 Mg Tab PO 06/17/21 10:01 QDAY DARVIN Dexamethasone 8 mg 06/15/21 10:00 06/15/21 10:00 Dexamethasone 4 Mg/Ml Vial IV 06/24/21 10:01 8 mg DAILY DARVIN Administration Enoxaparin Sodium 40 mg 06/14/21 10:00 06/15/21 11:43 Enoxaparin 40 Mg/0.4 Ml Inj SUB-Q 40 mg QDAY DARVIN Administration REMDESIVIR 100 mg/ Sodium 250 mls @ 500 mls/hr 06/16/21 21:00 Chloride IV 06/19/21 21:29 Q24HR@2100 DARVIN Morphine Sulfate 1 mg 06/14/21 09:39 06/14/21 23:13 Morphine 2 Mg/1 Ml Inj IV 1 mg Q4H PRN Administration Pain , Severe (7-10) Ondansetron HCl 4 mg 06/14/21 09:13 06/14/21 12:17 Ondansetron 4 Mg/2 Ml Inj IV 4 mg Q8H PRN Administration Nausea And Vomiting Sodium Chloride 10 ml 06/14/21 10:00 06/15/21 22:34 Sodium Chloride 0.9% 10 Ml Flush Syringe IV 10 ml BID DARVIN Administration Sodium Chloride 10 ml 06/14/21 09:13 Sodium Chloride 0.9% 10 Ml Flush Syringe IV PRN PRN LINE FLUSH Sodium Chloride 50 ml 06/15/21 14:30 06/15/21 18:00 Sodium Chloride 0.9% 50 Ml Ivpb IV 06/19/21 21:01 50 ml Q24HR@2100 DARVIN Administration
[2021-06-16] MEDS: ENOXAPARIN 40 MG/0.4 ML INJ SUB-Q SCH (09:56)
[2021-06-16] MEDS: dexAMETHasone 4 MG/ML VIAL IV SCH (09:56)
[2021-06-16] MEDS ORDERED: AZITHROMYCIN 250 MG TAB PO SCH (10:00)
[2021-06-16 10:15] LABS: Alanine Aminotransferase 30 units/L (7-56); Blood Urea Nitrogen 11 mg/dL (7-17); Calcium 8.4 mg/dL (8.4-10.2); Hemolysis Index 7
[2021-06-16 10:19] LABS: BUN/Creatinine Ratio 28
[2021-06-16] MEDS: REMDESIVIR 100 MG in SODIUM CHLORIDE 0.9% 250ML 250 ML IV SCH (22:09)
[2021-06-16] MEDS: SODIUM CHLORIDE 0.9% 50 ML IVPB IV SCH (23:50)
[2021-06-17 07:00] LABS: Alanine Aminotransferase 35 units/L (7-56); Albumin 3.1 g/dL (3.9-5); Blood Urea Nitrogen 12 mg/dL (7-17); Calcium 8.6 mg/dL (8.4-10.2); Hemolysis Index 3
[2021-06-17 07:18] LABS: BUN/Creatinine Ratio 30
--- NOTE | 2021-06-17 08:30 | Progress Note ---
Assessment and Plan Assessment and plan: Acute hypoxic respiratory failure. Suspected COVID-19 pneumonia. Bilateral pneumonia Sepsis. Patient meets criteria given the fever, tachycardia, leukopenia and diagnosis of pneumonia. 06/14/2021. The patient will be admitted to medical floor and started on empiric IV antibiotics. Chest x-ray reveals moderate patchy bilateral pulmonary opacities likely indicating viral pneumonia. Follow-up Covid PCR testing. The patient does have elevated inflammatory markers of D-dimer at 637, ferritin 625, LDH 467 and CRP of 5.2. Check procalcitonin levels. Consider ID and pulmonary consultations. 06/15/2021. Covid PCR testing positive on 06/13. Continue dexamethasone IV for total of 10 days. Continue to trend inflammatory markers. Continue empiric IV antibiotics for now. ID consultation pending. Prone positioning as possible 06/16/2021. Patient currently on 5 L O2, continue to wean oxygen as tolerated. Continue dexamethasone and remdesivir. Procalcitonin level was low thus antibiotics discontinued. Patient does not meet CRP criteria for Actemra. Continue to trend inflammatory markers of ferritin, LDH, D-dimer and CRP. Prone positioning as possible. 06/17/2021. Patient currently with 8 L O2. Continue to wean oxygen as tolerated. Continue dexamethasone and remdesivir. Procalcitonin level was low thus antibiotics discontinued. Patient does not meet CRP criteria for Actemra. Continue to trend inflammatory markers of ferritin, LDH, D-dimer and CRP. Prone positioning as possible. History Interval history: No new issues overnight. Hospitalist Physical - Constitutional Vitals: Temp Pulse Resp BP Pulse Ox 98.0 F 58 L 20 138/82 95 06/16/21 08:00 06/17/21 04:00 06/17/21 04:00 06/17/21 04:00 06/17/21 04:00 General appearance: Present: no acute distress, well-nourished - EENT Eyes: Present: PERRL, EOM intact ENT: hearing intact, clear oral mucosa, dentition normal - Neck Neck: Present: supple, normal ROM - Respiratory Respiratory effort: normal Respiratory: bilateral: CTA - Cardiovascular Rhythm: regular Heart Sounds: Present: S1 & S2. Absent: gallop, rub - Extremities Extremities: no ischemia, No edema, Full ROM - Abdominal General gastrointestinal: soft, non-tender, non-distended, normal bowel sounds - Integumentary Integumentary: Present: clear, warm, dry - Neurologic Neurologic: CNII-XII intact, moves all extremities Results - Labs CBC & Chem 7: 06/15/21 05:44 06/17/21 05:33 Labs: Laboratory Last Values WBC 6.9 K/mm3 (4.5-11.0) 06/15/21 05:44 RBC 4.23 M/mm3 (3.65-5.03) 06/15/21 05:44 Hgb 13.2 gm/dl (10.1-14.3) 06/15/21 05:44 Hct 39.0 % (30.3-42.9) 06/15/21 05:44 MCV 92 fl (79-97) 06/15/21 05:44 MCH 31 pg (28-32) 06/15/21 05:44 MCHC 34 % (30-34) 06/15/21 05:44 RDW 13.4 % (13.2-15.2) 06/15/21 05:44 Plt Count 142 K/mm3 (140-440) 06/15/21 05:44 Lymph % (Auto) 9.0 % (13.4-35.0) L 06/15/21 05:44 [place] % (Auto) 5.9 % (0.0-7.3) 06/15/21 05:44 Eos % (Auto) 0.0 % (0.0-4.3) 06/15/21 05:44 Baso % (Auto) 0.2 % (0.0-1.8) 06/15/21 05:44 Lymph # (Auto) 0.6 K/mm3 (1.2-5.4) L 06/15/21 05:44 [place] # (Auto) 0.4 K/mm3 (0.0-0.8) 06/15/21 05:44 Eos # (Auto) 0.0 K/mm3 (0.0-0.4) 06/15/21 05:44 Baso # (Auto) 0.0 K/mm3 (0.0-0.1) 06/15/21 05:44 Seg Neutrophils % 84.9 % (40.0-70.0) H 06/15/21 05:44 Seg Neutrophils # 5.8 K/mm3 (1.8-7.7) 06/15/21 05:44 D-Dimer 605.31 ng/mlDDU (0-234) H 06/14/21 10:06 Sodium 140 mmol/L (137-145) 06/17/21 05:33 Potassium 3.6 mmol/L (3.6-5.0) 06/17/21 05:33 Chloride 105.7 mmol/L (98-107) 06/17/21 05:33 Carbon Dioxide 26 mmol/L (22-30) 06/17/21 05:33 Anion Gap 12 mmol/L 06/17/21 05:33 BUN 12 mg/dL (7-17) 06/17/21 05:33 Creatinine 0.4 mg/dL (0.6-1.2) L 06/17/21 05:33 Estimated GFR > 60 ml/min 06/17/21 05:33 BUN/Creatinine Ratio 30 % 06/17/21 05:33 Glucose 129 mg/dL (65-100) H 06/17/21 05:33 POC Glucose 137 mg/dL (70-105) H 06/14/21 20:34 Calcium 8.6 mg/dL (8.4-10.2) 06/17/21 05:33 Ferritin 630.6 ng/mL (10.0-200.0) H 06/14/21 10:06 Total Bilirubin 0.30 mg/dL (0.1-1.2) 06/17/21 05:33 AST 29 units/L (5-40) 06/17/21 05:33 ALT 35 units/L (7-56) 06/17/21 05:33 Alkaline Phosphatase 55 units/L (35-129) 06/17/21 05:33 Lactate Dehydrogenase 439 units/L (91-180) H 06/14/21 10:06 C-Reactive Protein 6.80 mg/dL (0.00-1.30) H 06/14/21 10:06 Total Protein 6.3 g/dL (6.3-8.2) 06/17/21 05:33 Albumin 3.1 g/dL (3.9-5) L 06/17/21 05:33 Albumin/Globulin Ratio 1.0 % 06/17/21 05:33 Procalcitonin < 0.05 ng/mL (<0.15) 06/14/21 10:06 Coronavirus (PCR) Positive (Negative) A 06/13/21 Unknown Microbiology: Microbiology 06/13/21 15:35 Peripheral/Venous Blood Culture - Preliminary NO GROWTH AFTER 72 HOURS 06/13/21 15:35 Peripheral/Venous Blood Culture - Preliminary NO GROWTH AFTER 72 HOURS Active Medications - Current Medications Current Medications: Generic Name Dose Route Start Last Admin Trade Name Freq PRN Reason Stop Dose Admin Acetaminophen 650 mg 06/14/21 09:13 Acetaminophen 325 Mg Tab PO Q4H PRN Pain MILD(1-3)/Fever >100.5/NAPIER Hydrocodone Bitart/Acetaminophen 2 each 06/14/21 09:13 Hydrocodone/Acetaminophen 5-325 Mg Tab PO Q6H PRN Pain, Moderate (4-6) Dexamethasone 8 mg 06/15/21 10:00 06/16/21 09:56 Dexamethasone 4 Mg/Ml Vial IV 06/24/21 10:01 8 mg DAILY DARVIN Administration Enoxaparin Sodium 40 mg 06/14/21 10:00 06/16/21 09:56 Enoxaparin 40 Mg/0.4 Ml Inj SUB-Q 40 mg QDAY DARVIN Administration REMDESIVIR 100 mg/ Sodium 250 mls @ 500 mls/hr 06/16/21 21:00 06/16/21 22:09 Chloride IV 06/19/21 21:29 500 mls/hr Q24HR@2100 DARVIN Administration Morphine Sulfate 1 mg 06/14/21 09:39 06/14/21 23:13 Morphine 2 Mg/1 Ml Inj IV 1 mg Q4H PRN Administration Pain , Severe (7-10) Ondansetron HCl 4 mg 06/14/21 09:13 06/14/21 12:17 Ondansetron 4 Mg/2 Ml Inj IV 4 mg Q8H PRN Administration Nausea And Vomiting Sodium Chloride 10 ml 06/14/21 10:00 06/16/21 22:10 Sodium Chloride 0.9% 10 Ml Flush Syringe IV 10 ml BID DARVIN Administration Sodium Chloride 10 ml 06/14/21 09:13 Sodium Chloride 0.9% 10 Ml Flush Syringe IV PRN PRN LINE FLUSH Sodium Chloride 50 ml 06/15/21 14:30 06/16/21 23:50 Sodium Chloride 0.9% 50 Ml Ivpb IV 06/19/21 21:01 50 ml Q24HR@2100 DARVIN Administration
[2021-06-17] MEDS: ENOXAPARIN 40 MG/0.4 ML INJ SUB-Q SCH (09:56)
[2021-06-17] MEDS: dexAMETHasone 4 MG/ML VIAL IV SCH (09:56)
--- NOTE | 2021-06-17 14:37 | Progress Note ---
Assessment and Plan Cultures: SARS CoV2 PCR: Positive Blood culture: No growth A/P: 41-year-old female with: #Bilateral pneumonia: Secondary to COVID-19. Unvaccinated #Acute hypoxic respiratory failure: off BiPAP, now on NC. #Obesity Recs: continue IV/PO Dexamethasone 8 mg daily x 10 days, higher dose due to morbid obesity complete 5 days of Remdesivir prophylactic anticoagulation based on d-dimer per hospital protocol trend ferritin, LDH, d-dimer, CRP every 2-3 days for risk stratification and to assess disease progression continue oxygen weaning ID will sign off. Please call with questions or new concerns. Yoni Main MD, FACP [facility] ([facility]) O: [phone] F: [phone] Subjective Date of service: 06/17/21 Interval history: No fever. Oxygenation has improved somewhat, off BiPAP and down to 6 L/min by nasal cannula. Objective - Exam Narrative Exam: Physical Exam (reviewed in chart to minimize risk of transmission) Constitutional: deferred Head, Ears, Nose: deferred Eyes: deferred Neck: deferred Oral: deferred Cardiovascular: deferred Respiratory: deferred GI: deferred Musculoskeletal: deferred Skin: deferred Hem/Lymphatic: deferred Psych: deferred Neurological: deferred - Constitutional Vitals: Vital Signs Temp Pulse Resp BP Pulse Ox 98.0 F 66 20 144/84 93 06/17/21 09:17 06/17/21 14:00 06/17/21 14:00 06/17/21 14:00 06/17/21 14:00 Temperature -Last 24 Hours Temperature 98.0 F - Labs CBC & Chem 7: 06/15/21 05:44 06/17/21 05:33 Labs: Abnormal lab results 06/17/21 Range/Units 05:33 Creatinine 0.4 L (0.6-1.2) mg/dL Glucose 129 H (65-100) mg/dL Albumin 3.1 L (3.9-5) g/dL
[2021-06-17] MEDS: REMDESIVIR 100 MG in SODIUM CHLORIDE 0.9% 250ML 250 ML IV SCH (23:01)
[2021-06-17] MEDS: SODIUM CHLORIDE 0.9% 50 ML IVPB IV SCH (23:47)
[2021-06-18 05:33] LABS: Alanine Aminotransferase 55 units/L (7-56); Albumin 3.2 g/dL (3.9-5); BUN/Creatinine Ratio 35; Blood Urea Nitrogen 14 mg/dL (7-17); Calcium 8.5 mg/dL (8.4-10.2); Hemolysis Index 5
[2021-06-18] MEDS: ENOXAPARIN 40 MG/0.4 ML INJ SUB-Q SCH (11:46)
[2021-06-18] MEDS: dexAMETHasone 4 MG/ML VIAL IV SCH (11:46)
--- NOTE | 2021-06-18 14:04 | Progress Note ---
Assessment and Plan Assessment and plan: --Acute hypoxic respiratory failure. Requiring BiPAP, wean as tolerated Home oxygen evaluation prior to discharge Prone positioning Currently on 6-8 L nasal cannula oxygen --COVID-19 pneumonia; Dexamethasone higher dose 8 mg[due to obesity] for 10 days Remdesivir for for total 5 days inflammatory markers Prone positioning Home O2 evaluation --Sepsis due to bilateral pneumonia; Fever, tachycardia, leukopenia, pneumonia Empiric antibiotics discontinued due to low procalcitonin --Obesity; BMI 37.7; Patient advised weight reduction Dietary modification exercise as tolerated When medically stable --DVT prophylaxis Subcu Lovenox Closely monitor the patient and adjust management as needed Plan of care reviewed with the patient and her nurse 06/14/2021. The patient will be admitted to medical floor and started on empiric IV antibiotics. Chest x-ray reveals moderate patchy bilateral pulmonary opacities likely indicating viral pneumonia. Follow-up Covid PCR testing. The patient does have elevated inflammatory markers of D-dimer at 637, ferritin 625, LDH 467 and CRP of 5.2. Check procalcitonin levels. Consider ID and pulmonary consultations. 06/15/2021. Covid PCR testing positive on 06/13. Continue dexamethasone IV for total of 10 days. Continue to trend inflammatory markers. Continue empiric IV antibiotics for now. ID consultation pending. Prone positioning as possible 06/16/2021. Patient currently on 5 L O2, continue to wean oxygen as tolerated. Continue dexamethasone and remdesivir. Procalcitonin level was low thus antibiotics discontinued. Patient does not meet CRP criteria for Actemra. Continue to trend inflammatory markers of ferritin, LDH, D-dimer and CRP. Prone positioning as possible. 06/17/2021. Patient currently with 8 L O2. Continue to wean oxygen as tolerated. Continue dexamethasone and remdesivir. Procalcitonin level was low thus antibiotics discontinued. Patient does not meet CRP criteria for Actemra. Continue to trend inflammatory markers of ferritin, LDH, D-dimer and CRP. Prone positioning as possible. 06/18/2021; patient is on 6 L of nose nasal cannula oxygen Continues to have shortness of breath, patient is receiving steroid and remdesivir Advised weight reduction when medically stable History Interval history: I have seen and examined the patient at the bedside Patient's chart and medications reviewed No new events reported by the nursing staff Patient is severely hypoxemic Requiring 6 to 8 L of supplemental nasal cannula oxygen Vital signs noted Hospitalist Physical - Constitutional Vitals: Temp Pulse Resp BP Pulse Ox 98.0 F 50 L 17 115/71 95 06/17/21 09:17 06/18/21 12:30 06/18/21 12:30 06/18/21 12:30 06/18/21 13:49 General appearance: Present: mild distress, well-nourished, other (Severely hypoxemic in distress) - EENT Eyes: Present: PERRL, EOM intact - Neck Neck: Present: supple, normal ROM - Respiratory Respiratory effort: normal Respiratory: bilateral: diminished, rhonchi, negative: rales, wheezing - Cardiovascular Rhythm: regular Heart Sounds: Present: S1 & S2 - Extremities Extremities: no ischemia, No edema - Abdominal General gastrointestinal: soft, non-tender, non-distended, normal bowel sounds - Integumentary Integumentary: Present: clear, warm - Psychiatric Psychiatric: appropriate mood/affect, cooperative - Neurologic Neurologic: CNII-XII intact, moves all extremities Results - Labs CBC & Chem 7: 06/15/21 05:44 06/18/21 04:40 Labs: Laboratory Last Values WBC 6.9 K/mm3 (4.5-11.0) 06/15/21 05:44 RBC 4.23 M/mm3 (3.65-5.03) 06/15/21 05:44 Hgb 13.2 gm/dl (10.1-14.3) 06/15/21 05:44 Hct 39.0 % (30.3-42.9) 06/15/21 05:44 MCV 92 fl (79-97) 06/15/21 05:44 MCH 31 pg (28-32) 06/15/21 05:44 MCHC 34 % (30-34) 06/15/21 05:44 RDW 13.4 % (13.2-15.2) 06/15/21 05:44 Plt Count 142 K/mm3 (140-440) 06/15/21 05:44 Lymph % (Auto) 9.0 % (13.4-35.0) L 06/15/21 05:44 [place] % (Auto) 5.9 % (0.0-7.3) 06/15/21 05:44 Eos % (Auto) 0.0 % (0.0-4.3) 06/15/21 05:44 Baso % (Auto) 0.2 % (0.0-1.8) 06/15/21 05:44 Lymph # (Auto) 0.6 K/mm3 (1.2-5.4) L 06/15/21 05:44 [place] # (Auto) 0.4 K/mm3 (0.0-0.8) 06/15/21 05:44 Eos # (Auto) 0.0 K/mm3 (0.0-0.4) 06/15/21 05:44 Baso # (Auto) 0.0 K/mm3 (0.0-0.1) 06/15/21 05:44 Seg Neutrophils % 84.9 % (40.0-70.0) H 06/15/21 05:44 Seg Neutrophils # 5.8 K/mm3 (1.8-7.7) 06/15/21 05:44 D-Dimer 605.31 ng/mlDDU (0-234) H 06/14/21 10:06 Sodium 139 mmol/L (137-145) 06/18/21 04:40 Potassium 3.6 mmol/L (3.6-5.0) 06/18/21 04:40 Chloride 108.4 mmol/L (98-107) H 06/18/21 04:40 Carbon Dioxide 24 mmol/L (22-30) 06/18/21 04:40 Anion Gap 10 mmol/L 06/18/21 04:40 BUN 14 mg/dL (7-17) 06/18/21 04:40 Creatinine 0.4 mg/dL (0.6-1.2) L 06/18/21 04:40 Estimated GFR > 60 ml/min 06/18/21 04:40 BUN/Creatinine Ratio 35 % 06/18/21 04:40 Glucose 130 mg/dL (65-100) H 06/18/21 04:40 POC Glucose 137 mg/dL (70-105) H 06/14/21 20:34 Calcium 8.5 mg/dL (8.4-10.2) 06/18/21 04:40 Ferritin 630.6 ng/mL (10.0-200.0) H 06/14/21 10:06 Total Bilirubin 0.30 mg/dL (0.1-1.2) 06/18/21 04:40 AST 46 units/L (5-40) H 06/18/21 04:40 ALT 55 units/L (7-56) 06/18/21 04:40 Alkaline Phosphatase 63 units/L (35-129) 06/18/21 04:40 Lactate Dehydrogenase 439 units/L (91-180) H 06/14/21 10:06 C-Reactive Protein 6.80 mg/dL (0.00-1.30) H 06/14/21 10:06 Total Protein 6.4 g/dL (6.3-8.2) 06/18/21 04:40 Albumin 3.2 g/dL (3.9-5) L 06/18/21 04:40 Albumin/Globulin Ratio 1.0 % 06/18/21 04:40 Procalcitonin < 0.05 ng/mL (<0.15) 06/14/21 10:06 Coronavirus (PCR) Positive (Negative) A 06/13/21 Unknown Microbiology: Microbiology 06/13/21 15:35 Peripheral/Venous Blood Culture - Preliminary NO GROWTH AFTER 4 DAYS 06/13/21 15:35 Peripheral/Venous Blood Culture - Preliminary NO GROWTH AFTER 4 DAYS Active Medications - Current Medications Current Medications: Generic Name Dose Route Start Last Admin Trade Name Freq PRN Reason Stop Dose Admin Acetaminophen 650 mg 06/14/21 09:13 Acetaminophen 325 Mg Tab PO Q4H PRN Pain MILD(1-3)/Fever >100.5/NAPIER Hydrocodone Bitart/Acetaminophen 2 each 06/14/21 09:13 Hydrocodone/Acetaminophen 5-325 Mg Tab PO Q6H PRN Pain, Moderate (4-6) Dexamethasone 8 mg 06/15/21 10:00 06/18/21 11:46 Dexamethasone 4 Mg/Ml Vial IV 06/24/21 10:01 8 mg DAILY DARVIN Administration Enoxaparin Sodium 40 mg 06/14/21 10:00 06/18/21 11:46 Enoxaparin 40 Mg/0.4 Ml Inj SUB-Q 40 mg QDAY DARVIN Administration REMDESIVIR 100 mg/ Sodium 250 mls @ 500 mls/hr 06/16/21 21:00 06/17/21 23:01 Chloride IV 06/19/21 21:29 500 mls/hr Q24HR@2100 DARVIN Administration Morphine Sulfate 1 mg 06/14/21 09:39 06/14/21 23:13 Morphine 2 Mg/1 Ml Inj IV 1 mg Q4H PRN Administration Pain , Severe (7-10) Ondansetron HCl 4 mg 06/14/21 09:13 06/14/21 12:17 Ondansetron 4 Mg/2 Ml Inj IV 4 mg Q8H PRN Administration Nausea And Vomiting Sodium Chloride 10 ml 06/14/21 10:00 06/18/21 11:46 Sodium Chloride 0.9% 10 Ml Flush Syringe IV 10 ml BID DARVIN Administration Sodium Chloride 10 ml 06/14/21 09:13 Sodium Chloride 0.9% 10 Ml Flush Syringe IV PRN PRN LINE FLUSH Sodium Chloride 50 ml 06/15/21 14:30 06/17/21 23:47 Sodium Chloride 0.9% 50 Ml Ivpb IV 06/19/21 21:01 50 ml Q24HR@2100 DARVIN Administration
[2021-06-18 19:38] LABS: C-Reactive Protein 0.7 mg/dL (0.00-1.30)
[2021-06-18] MEDS: SODIUM CHLORIDE 0.9% 50 ML IVPB IV SCH (21:25)
[2021-06-18] MEDS: REMDESIVIR 100 MG in SODIUM CHLORIDE 0.9% 250ML 250 ML IV SCH (22:23)
--- NOTE | 2021-06-19 09:53 | Progress Note ---
Assessment and Plan Assessment and plan: --Acute hypoxic respiratory failure. Requiring BiPAP, wean as tolerated Home oxygen evaluation prior to discharge Prone positioning Currently on 6-8 L nasal cannula oxygen --COVID-19 pneumonia; Dexamethasone higher dose 8 mg[due to obesity] for 10 days Remdesivir for for total 5 days inflammatory markers Prone positioning Home O2 evaluation --Sepsis due to bilateral pneumonia; Fever, tachycardia, leukopenia, pneumonia Empiric antibiotics discontinued due to low procalcitonin --Obesity; BMI 37.7; Patient advised weight reduction Dietary modification exercise as tolerated When medically stable --DVT prophylaxis Subcu Lovenox Closely monitor the patient and adjust management as needed Plan of care reviewed with the patient and her nurse 06/19/2021; Patient is receiving steroid and remdesivir Home O2 evaluation Possible discharge home tomorrow if stable History Interval history: I have seen and examined the patient at the bedside Isolation precautions PPE protocols followed Patient complains of mild shortness of breath Vital signs reviewed Hospitalist Physical - Constitutional Vitals: Temp Pulse Resp BP Pulse Ox 97.8 F 49 L 16 109/59 98 06/19/21 03:27 06/19/21 03:27 06/19/21 03:27 06/19/21 03:27 06/19/21 09:01 General appearance: Present: mild distress, well-nourished, other (Severely hypoxemic in distress) - EENT Eyes: Present: PERRL, EOM intact - Neck Neck: Present: supple, normal ROM - Respiratory Respiratory effort: normal Respiratory: bilateral: diminished, rhonchi, negative: rales, wheezing - Cardiovascular Rhythm: regular Heart Sounds: Present: S1 & S2 - Extremities Extremities: no ischemia, No edema - Abdominal General gastrointestinal: soft, non-tender, non-distended, normal bowel sounds - Integumentary Integumentary: Present: clear, warm - Psychiatric Psychiatric: appropriate mood/affect, cooperative - Neurologic Neurologic: CNII-XII intact, moves all extremities Results - Labs CBC & Chem 7: 06/15/21 05:44 06/18/21 04:40 Labs: Laboratory Last Values WBC 6.9 K/mm3 (4.5-11.0) 06/15/21 05:44 RBC 4.23 M/mm3 (3.65-5.03) 06/15/21 05:44 Hgb 13.2 gm/dl (10.1-14.3) 06/15/21 05:44 Hct 39.0 % (30.3-42.9) 06/15/21 05:44 MCV 92 fl (79-97) 06/15/21 05:44 MCH 31 pg (28-32) 06/15/21 05:44 MCHC 34 % (30-34) 06/15/21 05:44 RDW 13.4 % (13.2-15.2) 06/15/21 05:44 Plt Count 142 K/mm3 (140-440) 06/15/21 05:44 Lymph % (Auto) 9.0 % (13.4-35.0) L 06/15/21 05:44 [place] % (Auto) 5.9 % (0.0-7.3) 06/15/21 05:44 Eos % (Auto) 0.0 % (0.0-4.3) 06/15/21 05:44 Baso % (Auto) 0.2 % (0.0-1.8) 06/15/21 05:44 Lymph # (Auto) 0.6 K/mm3 (1.2-5.4) L 06/15/21 05:44 [place] # (Auto) 0.4 K/mm3 (0.0-0.8) 06/15/21 05:44 Eos # (Auto) 0.0 K/mm3 (0.0-0.4) 06/15/21 05:44 Baso # (Auto) 0.0 K/mm3 (0.0-0.1) 06/15/21 05:44 Seg Neutrophils % 84.9 % (40.0-70.0) H 06/15/21 05:44 Seg Neutrophils # 5.8 K/mm3 (1.8-7.7) 06/15/21 05:44 D-Dimer 452.87 ng/mlDDU (0-234) H 06/18/21 16:06 Sodium 139 mmol/L (137-145) 06/18/21 04:40 Potassium 3.6 mmol/L (3.6-5.0) 06/18/21 04:40 Chloride 108.4 mmol/L (98-107) H 06/18/21 04:40 Carbon Dioxide 24 mmol/L (22-30) 06/18/21 04:40 Anion Gap 10 mmol/L 06/18/21 04:40 BUN 14 mg/dL (7-17) 06/18/21 04:40 Creatinine 0.4 mg/dL (0.6-1.2) L 06/18/21 04:40 Estimated GFR > 60 ml/min 06/18/21 04:40 BUN/Creatinine Ratio 35 % 06/18/21 04:40 Glucose 130 mg/dL (65-100) H 06/18/21 04:40 POC Glucose 137 mg/dL (70-105) H 06/14/21 20:34 Calcium 8.5 mg/dL (8.4-10.2) 06/18/21 04:40 Ferritin 406.6 ng/mL (10.0-200.0) H 06/18/21 19:27 Total Bilirubin 0.30 mg/dL (0.1-1.2) 06/18/21 04:40 AST 46 units/L (5-40) H 06/18/21 04:40 ALT 55 units/L (7-56) 06/18/21 04:40 Alkaline Phosphatase 63 units/L (35-129) 06/18/21 04:40 Lactate Dehydrogenase 282 units/L (91-180) H 06/18/21 16:06 C-Reactive Protein 0.70 mg/dL (0.00-1.30) 06/18/21 16:06 Total Protein 6.4 g/dL (6.3-8.2) 06/18/21 04:40 Albumin 3.2 g/dL (3.9-5) L 06/18/21 04:40 Albumin/Globulin Ratio 1.0 % 06/18/21 04:40 Procalcitonin < 0.05 ng/mL (<0.15) 06/14/21 10:06 Coronavirus (PCR) Positive (Negative) A 06/13/21 Unknown Microbiology: Microbiology 06/13/21 15:35 Peripheral/Venous Blood Culture - Final NO GROWTH AFTER 5 DAYS 06/13/21 15:35 Peripheral/Venous Blood Culture - Final NO GROWTH AFTER 5 DAYS Gordon/IV: Voiding Method Toilet Active Medications - Current Medications Current Medications: Generic Name Dose Route Start Last Admin Trade Name Freq PRN Reason Stop Dose Admin Acetaminophen 650 mg 06/14/21 09:13 Acetaminophen 325 Mg Tab PO Q4H PRN Pain MILD(1-3)/Fever >100.5/NAPIER Hydrocodone Bitart/Acetaminophen 2 each 06/14/21 09:13 Hydrocodone/Acetaminophen 5-325 Mg Tab PO Q6H PRN Pain, Moderate (4-6) Dexamethasone 8 mg 06/15/21 10:00 06/18/21 11:46 Dexamethasone 4 Mg/Ml Vial IV 06/24/21 10:01 8 mg DAILY DARVIN Administration Enoxaparin Sodium 40 mg 06/14/21 10:00 06/18/21 11:46 Enoxaparin 40 Mg/0.4 Ml Inj SUB-Q 40 mg QDAY DARVIN Administration REMDESIVIR 100 mg/ Sodium 250 mls @ 500 mls/hr 06/16/21 21:00 06/18/21 22:23 Chloride IV 06/19/21 21:29 500 mls/hr Q24HR@2100 DARVIN Administration Morphine Sulfate 1 mg 06/14/21 09:39 06/14/21 23:13 Morphine 2 Mg/1 Ml Inj IV 1 mg Q4H PRN Administration Pain , Severe (7-10) Ondansetron HCl 4 mg 06/14/21 09:13 06/14/21 12:17 Ondansetron 4 Mg/2 Ml Inj IV 4 mg Q8H PRN Administration Nausea And Vomiting Sodium Chloride 10 ml 06/14/21 10:00 06/18/21 21:27 Sodium Chloride 0.9% 10 Ml Flush Syringe IV 10 ml BID DARVIN Administration Sodium Chloride 10 ml 06/14/21 09:13 Sodium Chloride 0.9% 10 Ml Flush Syringe IV PRN PRN LINE FLUSH Sodium Chloride 50 ml 06/15/21 14:30 06/18/21 21:25 Sodium Chloride 0.9% 50 Ml Ivpb IV 06/19/21 21:01 50 ml Q24HR@2100 DARVIN Administration
[2021-06-19] MEDS: dexAMETHasone 4 MG/ML VIAL IV SCH (11:42)
[2021-06-19] MEDS: ENOXAPARIN 40 MG/0.4 ML INJ SUB-Q SCH (11:42)
[2021-06-19] MEDS: SODIUM CHLORIDE 0.9% 50 ML IVPB IV SCH (21:31)
[2021-06-19] MEDS: REMDESIVIR 100 MG in SODIUM CHLORIDE 0.9% 250ML 250 ML IV SCH (21:32)
[2021-06-20] MEDS: ENOXAPARIN 40 MG/0.4 ML INJ SUB-Q SCH (10:14)
[2021-06-20] MEDS: dexAMETHasone 4 MG/ML VIAL IV SCH (10:14)
--- NOTE | 2021-06-20 11:37 | Discharge Summary ---
Providers - Providers Date of Admission: 06/14/21 09:13 Date of discharge: 06/20/21 Attending physician: BOBBY SHARP 06/15/21 08:14 Consult to Physician [CONS] Routine Comment: Consulting Provider: SAMIA CHARLES Physician Instructions: Reason For Exam: COVID 06/18/21 15:41 Physical Therapy Evaluation and Treat [CONS] Stat Comment: Reason For Exam: eval and treat 06/18/21 15:42 Occupational Therapy Evaluate and Treat [CONS] Stat Comment: Reason For Exam: eval and treat Primary care physician: [employer] Hospitalization Reason for admission: Worsening shortness of breath and cough/COVID-19 infection Condition: Stable Pertinent studies: Chest x-ray; bilateral infiltrates, viral pneumonia Hospital course: 41-year-old female with no significant past medical history presented through the emergency department with complaints of shortness of breath, cough and f ever. Patient reported that symptoms began approximately 9 days ago and have progressively worsened. Patient reports dyspnea at rest and exacerbated with exertion. Patient states she has not been vaccinated against COVID-19. Patient states she has not been tested for COVID-19. Patient was admitted to the Covid floor, placed in isolation, evaluated by ID, treatment initiated per Covid guidelines with oxygen IV steroids total 10 days and remdesivir total 5 days per protocol Patient was also started on supportive medications like zinc sulfate, vitamin D3 and vitamin C Patient's oxygen slowly titrated And today recheck resting room air and ambulatory room air O2 sat for home oxygen evaluation Patient is requiring 2 L of nasal cannula home oxygen .CM is assisting with acquiring home O2 at discharge oxygen Today patient is comfortable no new complaints vital signs stable Physical examination prior to discharge is unremarkable Stable at discharge,Cleared by consultants Discharge diagnosis --Acute hypoxic respiratory failure. Requiring BiPAP, wean as tolerated Home oxygen evaluation prior to discharge Prone positioning Currently on 6-8 L nasal cannula oxygen --COVID-19 pneumonia; Dexamethasone higher dose 8 mg[due to obesity] for 10 days Remdesivir for for total 5 days inflammatory markers Prone positioning Home O2 evaluation --Sepsis due to bilateral pneumonia; Fever, tachycardia, leukopenia, pneumonia Empiric antibiotics discontinued due to low procalcitonin --Obesity; BMI 37.7; Patient advised weight reduction Dietary modification exercise as tolerated When medically stable Stable at discharge on home O2 2 L Disposition: 01 HOME / SELF CARE / HOMELESS Final Discharge Diagnosis (Prints w/discharge instructions): Acute hypoxic respiratory failure. COVID-19 infection. COVID-19 pneumonia. Sepsis secondary to bilateral pneumonia. Obesity BMI 38.1 Time spent for discharge: 35 minutes Core Measure Documentation - Palliative Care Palliative Care/ Comfort Measures: Not Applicable - Core Measures Any of the following diagnoses?: none Exam - Constitutional Vitals: Temp Pulse Resp BP Pulse Ox 97.5 F L 45 L 18 131/65 94 06/20/21 04:15 06/20/21 04:15 06/20/21 04:15 06/20/21 04:15 06/20/21 07:59 General appearance: Present: no acute distress, well-nourished - EENT Eyes: Present: PERRL, EOM intact - Neck Neck: Present: supple, normal ROM - Respiratory Respiratory effort: normal Respiratory: bilateral: diminished, negative: rales, rhonchi, wheezing - Cardiovascular Rhythm: regular Heart Sounds: Present: S1 & S2 - Extremities Extremities: no ischemia, No edema - Abdominal General gastrointestinal: Present: soft, non-tender, non-distended, normal bowel sounds - Integumentary Integumentary: Present: clear, warm - Musculoskeletal Musculoskeletal: strength equal bilaterally, generalized weakness - Psychiatric Psychiatric: appropriate mood/affect, cooperative - Neurologic Neurologic: CNII-XII intact, moves all extremities Plan Activity: advance as tolerated Diet: regular Additional Instructions: Advised to follow strictly COVID-19 precautions and protocols like. Masking, social distancing, self quarantine and other instructions given to you by discharge nurse. Advised diet modification exercise as tolerated and weight reduction when medically stable. Advised to use 2 L of nasal cannula oxygen at home as needed/or as instructed by your discharge nurse. If you have worsening symptoms contact MD or go to the emergency room as needed Follow up with: PRIMARY CARE,MD [Primary Care Provider] - 7 Days Prescriptions: Dexamethasone [Decadron] 6 mg PO DAILY #4 tablet Ascorbic Acid [Vitamin C chew] 500 mg PO BID #30 tab.chew Cholecalciferol Vit D3 [Vitamin D3 1,000 UNIT TAB] 1,000 unit PO QDAY #15 tablet Zinc Sulfate [Zinc] 220 mg PO BID #30 tablet
[2021-06-20 13:46] VITALS: BP 133/71
== END 2021-06-20 17:10 | disposition home or self-care (01) | DRG 871 ==
LOC: ED 11:50 → 3A 06-14 04:50 → OBSVTOIN 06-14 09:13 → 3A 06-18 15:09
PROVIDERS: ADMIT Internal Medicine Geriatric Medicine; ATTEND Internal Medicine
PROC: XW033E5 Introduction of Remdesivir Anti-infective into Peripheral Vein, Percutaneous Approach, New Technology Group 5 (ICD-10-PCS; principal; 2021-06-15)
DX: A41.89 Other specified sepsis (principal); U07.1 COVID-19; J12.82 Pneumonia due to coronavirus disease 2019; J96.01 Acute respiratory failure with hypoxia; E66.9 Obesity, unspecified; I10 Essential (primary) hypertension; Z68.38 Body mass index [BMI] 38.0-38.9, adult
CPT/HCPCS: 36415; 71046; 80048; 80053; 82728; 82947; 82962; 83615; 84145; 85025; 85379; 86140; 87040; 94760; G0378; J0456; J0696; J1100; J1650; J2270; J2405; J7050; U0003